=== PATIENT | female | born 1990 | race Two or more races ===

== ENCOUNTER 2020-02-25 18:15 | Emergency (ER) | payer OTHER ==
[~2020-02-25] VITALS: Ht 165.1 cm; Wt 73.0 kg
[2020-02-25 18:21] VITALS: Ht 165.1 cm; Wt 73.0 kg
[2020-02-25 20:31] VITALS: BP 116/78
== END 2020-02-25 20:31 | disposition home or self-care (01) ==
LOC: ED 18:15
DX: S46.812A Strain of other muscles, fascia and tendons at shoulder and upper arm level, left arm, initial encounter (principal); W17.89XA Other fall from one level to another, initial encounter; Y93.89 Activity, other specified; Y92.89 Other specified places as the place of occurrence of the external cause; Y99.8 Other external cause status; Z98.890 Other specified postprocedural states
CPT/HCPCS: Q0092